=== PATIENT | female | born 1970 | race Caucasian/White ===

== ENCOUNTER → 2019-07-05 | Outpatient (CLI) | payer BC ==
[~2019-07-05] MED LIST: BIOT25005 PO; BUPR100T8 PO; CALC-534 PO; CHOL200024 PO; CYAN2000 PO; GABA600T7 PO; HYDR-36 PO; HYDR-826 PO; IBUP-1222 PO; LIDO700A42 TD; MORP-29 PO; MULT-658 PO; OMEG1CAP34 PO; OMEP-110 PO; PREG100C PO; TIZA4CAP PO; TURM1CAP PO; VENL225T PO; ZOLP12.54 PO
[2019-07-05 14:50] LABS: BASOPHILS # (AUTO) 0.06 x10^3/uL (0-0.1); BASOPHILS % (AUTO) 1 % (0-1); EOSINOPHILS # (AUTO) 0.24 x10^3/uL (0-0.4); EOSINOPHILS % (AUTO) 4 % (1-7); LYMPHOCYTES % (AUTO) 39 % (22-44); MD NO; MEAN CORPUSCULAR HEMOGLOBIN 30.9 pg (27.0-34.8); MEAN CORPUSCULAR HGB CONC 32.7 g/dL (32.4-35.8); MEAN CORPUSCULAR VOLUME 94.3 fL (80-100); MEAN PLATELET VOLUME 7.5 fL (7.4-10.4); MONOCYTES # (AUTO) 0.54 x10^3/uL (0.2-0.8); MONOCYTES % (AUTO) 10 % (2-9); NEUTROPHILS # (AUTO) 2.55 x10^3/uL (1.8-6.8); NEUTROPHILS % (AUTO) 46 % (42-75); PLATELET COUNT 421 x10^3/uL (130-400); RED BLOOD COUNT 4.09 x10^6/uL (3.82-5.3); RED CELL DISTRIBUTION WIDTH 12.9 % (9.6-15.2)
[2019-07-05 14:51] LABS: MICROSCOPIC NOT IND
[2019-07-05 15:01] LABS: INTERNATIONAL NORMALIZED RATIO 0.98 (0.93-1.1); PROTHROMBIN TIME 10.4 Seconds (9.6-11.5)
[2019-07-05 15:02] LABS: ANION GAP 9 mmol/L (5-15); CALCIUM 8.7 mg/dL (8.5-10.1); CHLORIDE 104 mmol/L (98-107)
[2019-07-05 15:10] LABS: CULTURE INDICATED? NO
== END | disposition home or self-care (01) ==
LOC: STAR 12:46
PROVIDERS: ATTEND Neurological Surgery
DX: Z01.818 Encounter for other preprocedural examination (principal); M48.061 Spinal stenosis, lumbar region without neurogenic claudication; M51.36 Other intervertebral disc degeneration, lumbar region; R79.1 Abnormal coagulation profile; R82.90 Unspecified abnormal findings in urine; R94.31 Abnormal electrocardiogram [ECG] [EKG]; Z01.810 Encounter for preprocedural cardiovascular examination; Z01.811 Encounter for preprocedural respiratory examination; Z01.812 Encounter for preprocedural laboratory examination
CPT/HCPCS: 36415; 71046; 72110; 80048; 81003; 85025; 85610; 85730; 93005

== ENCOUNTER 2019-07-12 05:32 | Inpatient (IN) | payer BC ==
[~2019-07-12] VITALS: Ht 175.3 cm; Wt 84.0 kg
[2019-07-12] MEDS ORDERED: BUPIVACAINE/PF-EPI 0.5% 1:200K ONE (05:56)
[2019-07-12] MEDS ORDERED: BACITRACIN 50,000 UNIT ONE (05:56)
[2019-07-12] MEDS ORDERED: LACTATED RINGERS 1,000 ML IV SCH (06:22)
[2019-07-12] MEDS ORDERED: DIAZEPAM 5 MG TABLET PO ONE (06:30)
[2019-07-12] MEDS ORDERED: ACETAMINOPHEN 500 MG TABLET PO ONE (06:30)
[2019-07-12] MEDS ORDERED: SCOPOLAMINE 1MG PATCH TD ONE (06:30)
[2019-07-12] MEDS ORDERED: LABETALOL 5MG/ML, 20ML ONE (07:03)
[2019-07-12] MEDS ORDERED: FENTANYL PF 250 MCG/5ML ONE (07:06)
[2019-07-12] MEDS ORDERED: FENTANYL PF 100 MCG/2ML ONE ×3 (07:06→09:06)
[2019-07-12] MEDS ORDERED: MIDAZOLAM 1 MG/ML, 2ML ONE ×2 (07:07→07:38)
[2019-07-12] MEDS ORDERED: PROPOFOL 100 ML ONE (07:09)
[2019-07-12] MEDS ORDERED: HEPARIN 1,000 UNITS/ML, 30ML IVPB ONE (07:44)
[2019-07-12] MEDS ORDERED: ONDANSETRON 2MG/ML, 2ML IV PRN (08:00)
[2019-07-12] MEDS ORDERED: PROMETHAZINE 25 MG/ML, 1ML IV PRN (08:00)
[2019-07-12] MEDS ORDERED: PROMETHAZINE 12.5 MG SUPP PR PRN (08:00)
[2019-07-12] MEDS ORDERED: MIDAZOLAM 1 MG/ML, 2ML IV PRN (08:00)
[2019-07-12] MEDS ORDERED: ONDANSETRON ODT 8 MG PO PRN (08:00)
[2019-07-12] MEDS ORDERED: LABETALOL 5MG/ML, 20ML IV PRN ×2 (08:00→12:30)
[2019-07-12] MEDS ORDERED: hydrALAzine 20 MG/ML, 1ML IV PRN (08:00)
[2019-07-12] MEDS ORDERED: PROMETHAZINE 25 MG SUPP PR PRN (08:00)
[2019-07-12] MEDS ORDERED: PROPOFOL 10 MG/ML, 20ML ONE (08:28)
[2019-07-12] MEDS ORDERED: DEXAMETHASONE 4 MG/ML, 1ML ONE (08:28)
[2019-07-12] MEDS ORDERED: ONDANSETRON 2MG/ML, 2ML ONE (08:28)
[2019-07-12] MEDS ORDERED: SUCCINYLCHOLINE 20 MG/ML, 10ML ONE (08:28)
[2019-07-12] MEDS ORDERED: ROCURONIUM 10MG/ML,5ML ONE (08:28)
[2019-07-12] MEDS ORDERED: NEOSTIGMINE 1 MG/ML, 10ML ONE (08:28)
[2019-07-12] MEDS ORDERED: GLYCOPYRROLATE 0.2MG/1ML, 5ML ONE (08:28)
[2019-07-12] MEDS ORDERED: CEFAZOLIN 1,000 MG ONE (08:28)
[2019-07-12] MEDS ORDERED: SUGAMMADEX 200 MG/2 ML IVPush ONE (08:46)
[2019-07-12] MEDS ORDERED: OXYcodone 5 MG/5 ML ORAL.SOL UDC ONE ×2 (09:06→10:42)
[2019-07-12] MEDS: FENTANYL PF 100 MCG/2ML IV PRN ×2 (09:10→09:20)
[2019-07-12] MEDS ORDERED: HYDROmorphone 1 MG/ML, 1ML INJ ONE (09:10)
[2019-07-12] MEDS ORDERED: METHOCARBAMOL 1,000 MG in DEXTROSE 5% 100 ML IV ONE (09:12)
[2019-07-12] MEDS: OXYcodone 5 MG/5 ML ORAL.SOL UDC PO PRN ×2 (09:25→10:40)
[2019-07-12] MEDS: HYDROmorphone 1 MG/ML, 1ML INJ IVPush PRN ×2 (09:25→09:35)
[2019-07-12] MEDS ORDERED: LORazepam 2 MG/ML, 1ML ONE (09:30)
[2019-07-12] MEDS: LORazepam 2 MG/ML, 1ML IVPush PRN ×2 (09:35→09:51)
[2019-07-12] MEDS ORDERED: MEPERIDINE/PF 25MG/ML,1ML ONE (10:10)
[2019-07-12] MEDS ORDERED: MEPERIDINE/PF 25MG/ML,1ML IVPush PRN (10:30)
[2019-07-12 12:10] VITALS: BP 149/92
[2019-07-12] MEDS ORDERED: DIPHENHYDRAMINE 50 MG/ML, 1ML IVPush PRN (12:30)
[2019-07-12] MEDS ORDERED: DIPHENHYDRAMINE 50 MG/ML, 1ML IM PRN (12:30)
[2019-07-12] MEDS ORDERED: BISACODYL 10 MG SUPP PR PRN (12:30)
[2019-07-12] MEDS ORDERED: DIPHENHYDRAMINE 25 MG CAPSULE PO PRN (12:30)
[2019-07-12] MEDS: D5%-0.9% NACL+KCL 20MEQ 1,000 ML IV SCH ×2 (13:16→22:30)
[2019-07-12] MEDS: GABAPENTIN 300 MG CAPSULE PO SCH ×3 (15:12→20:18)
[2019-07-12] MEDS: HYDROcodone/APAP 10/325 MG TABLET PO PRN ×2 (15:12→20:08)
[2019-07-12] MEDS: PREGABALIN 100 MG CAPSULE PO SCH ×2 (15:12→20:18)
[2019-07-12] MEDS: CEFAZOLIN PMX 1GM/50ML 50 ML IVPB SCH (17:11)
[2019-07-12] MEDS: TIZANIDINE 4MG TABLET PO PRN (17:11)
[2019-07-12 18:56] VITALS: BP 164/101
[2019-07-12] MEDS: morphine SULFATE 10 MG/ML, 1ML IV PRN (19:06)
[2019-07-12 20:04] VITALS: BP 147/90
[2019-07-12] MEDS: BUPROPION SR 100 MG TABLET PO SCH (20:18)
[2019-07-12] MEDS: METHOCARBAMOL 750 MG TABLET PO PRN (20:28)
[2019-07-12 22:33] VITALS: BP 107/71
[2019-07-13 00:26] VITALS: BP 101/66
[2019-07-13] MEDS: TIZANIDINE 4MG TABLET PO PRN ×3 (00:29→23:05)
[2019-07-13] MEDS: HYDROcodone/APAP 10/325 MG TABLET PO PRN ×4 (00:29→23:05)
[2019-07-13] MEDS: CEFAZOLIN PMX 1GM/50ML 50 ML IVPB SCH ×2 (00:36→20:56)
[2019-07-13] MEDS: METHOCARBAMOL 750 MG TABLET PO PRN ×2 (04:39→20:56)
[2019-07-13 04:40] VITALS: BP 118/78
[2019-07-13 06:04] LABS: BASOPHILS # (AUTO) 0.03 x10^3/uL (0-0.1); BASOPHILS % (AUTO) 0 % (0-1); EOSINOPHILS # (AUTO) 0.06 x10^3/uL (0-0.4); EOSINOPHILS % (AUTO) 1 % (1-7); LYMPHOCYTES % (AUTO) 28 % (22-44); MD NO; MEAN CORPUSCULAR HEMOGLOBIN 31.3 pg (27.0-34.8); MEAN CORPUSCULAR HGB CONC 33.3 g/dL (32.4-35.8); MEAN CORPUSCULAR VOLUME 94.1 fL (80-100); MEAN PLATELET VOLUME 7.8 fL (7.4-10.4); MONOCYTES # (AUTO) 1.19 x10^3/uL (0.2-0.8); MONOCYTES % (AUTO) 12 % (2-9); NEUTROPHILS # (AUTO) 5.84 x10^3/uL (1.8-6.8); NEUTROPHILS % (AUTO) 59 % (42-75); PLATELET COUNT 349 x10^3/uL (130-400); RED BLOOD COUNT 3.52 x10^6/uL (3.82-5.3); RED CELL DISTRIBUTION WIDTH 12.7 % (9.6-15.2)
[2019-07-13] MEDS: OMEPRAZOLE 20 MG CAPSULE.DR PO SCH (06:07)
[2019-07-13] MEDS: GABAPENTIN 300 MG CAPSULE PO SCH ×5 (06:07→20:56)
[2019-07-13 06:16] LABS: ANION GAP 6 mmol/L (5-15); CALCIUM 8.4 mg/dL (8.5-10.1); CHLORIDE 111 mmol/L (98-107)
[2019-07-13 06:18] LABS: CREATININE 0.69 mg/dL (0.55-1.02)
[2019-07-13] MEDS ORDERED: BACITRACIN 50,000 UNIT ONE (06:18)
[2019-07-13] MEDS ORDERED: BUPIVACAINE/PF 0.5% ONE (06:18)
[2019-07-13] MEDS ORDERED: EPINEPHRINE 1 MG/ML, 1ML ONE (06:18)
[2019-07-13] MEDS ORDERED: BUPIVACAINE 0.25% ONE (06:18)
[2019-07-13] MEDS ORDERED: VANCOMYCIN 1,000 MG ONE (06:18)
[2019-07-13 07:56] VITALS: BP 116/76
[2019-07-13] MEDS: D5%-0.9% NACL+KCL 20MEQ 1,000 ML IV SCH ×2 (08:27→18:19)
[2019-07-13] MEDS: SENNA/DOCUSATE TABLET PO SCH (08:27)
[2019-07-13] MEDS: VENLAFAXINE 75 MG CAP ER PO SCH (08:28)
[2019-07-13] MEDS: BUPROPION SR 100 MG TABLET PO SCH ×2 (08:29→20:56)
[2019-07-13] MEDS: PREGABALIN 100 MG CAPSULE PO SCH ×3 (08:29→20:56)
[2019-07-13] MEDS ORDERED: PROPOFOL 100 ML ONE (10:12)
[2019-07-13] MEDS ORDERED: FENTANYL PF 250 MCG/5ML ONE ×3 (10:12→15:28)
[2019-07-13] MEDS ORDERED: MIDAZOLAM 1 MG/ML, 2ML ONE (10:12)
[2019-07-13] MEDS: SCOPOLAMINE 1MG PATCH TD SCH (11:50)
[2019-07-13] MEDS ORDERED: GABAPENTIN 300 MG CAPSULE PO ONE (12:00)
[2019-07-13] MEDS ORDERED: ACETAMINOPHEN 500 MG TABLET PO ONE (12:00)
[2019-07-13] MEDS ORDERED: MORPHINE SULFATE 4 MG/ML, 1ML IVPush PRN (12:30)
[2019-07-13] MEDS ORDERED: hydrALAzine 20 MG/ML, 1ML IV PRN (12:30)
[2019-07-13] MEDS ORDERED: MEPERIDINE/PF 25MG/ML,1ML IVPush PRN (12:30)
[2019-07-13] MEDS ORDERED: PROMETHAZINE 25 MG/ML, 1ML IV PRN (12:30)
[2019-07-13] MEDS ORDERED: OXYcodone 5 MG/5 ML ORAL.SOL UDC PO PRN (12:30)
[2019-07-13] MEDS ORDERED: LABETALOL 5MG/ML, 20ML IV PRN (12:30)
[2019-07-13] MEDS ORDERED: HALOPERIDOL 5 MG/ML IV PRN (12:30)
[2019-07-13] MEDS ORDERED: BUPIVACAINE LIPOSOME/PF 10ML INFIL ONE (13:25)
[2019-07-13] MEDS ORDERED: VANCOMYCIN 1,000 MG IM ONE (13:34)
[2019-07-13] MEDS ORDERED: PROPOFOL 50 ML ONE (14:51)
[2019-07-13] MEDS ORDERED: FENTANYL PF 100 MCG/2ML ONE (16:08)
[2019-07-13] MEDS ORDERED: HYDROmorphone 2 MG/ML, 1ML ONE ×2 (16:08→17:37)
[2019-07-13] MEDS ORDERED: DIAZEPAM 5 MG/ML, 2ML ONE (16:09)
[2019-07-13] MEDS ORDERED: OXYcodone 5 MG/5 ML ORAL.SOL UDC ONE (16:09)
[2019-07-13] MEDS: FENTANYL PF 100 MCG/2ML IV PRN ×2 (16:22→16:57)
[2019-07-13] MEDS: DIAZEPAM 5 MG/ML, 2ML IVPush PRN ×2 (16:26→17:05)
[2019-07-13] MEDS ORDERED: PHARMACY MAY ADJ FOR RENAL FX MC PRN (16:30)
[2019-07-13] MEDS ORDERED: ONDANSETRON 2MG/ML, 2ML IVPush PRN (16:30)
[2019-07-13] MEDS ORDERED: CYCLOBENZAPRINE 10 MG TABLET PO PRN (16:30)
[2019-07-13] MEDS ORDERED: HYDROcodone/APAP 10/325 MG TABLET PO PRN (16:30)
[2019-07-13] MEDS ORDERED: METHOCARBAMOL 750 MG TABLET PO PRN (16:30)
[2019-07-13] MEDS ORDERED: MAGNESIUM HYDROXIDE 8%, 30ML UDC PO PRN (16:30)
[2019-07-13] MEDS ORDERED: SENNA/DOCUSATE TABLET PO PRN (16:30)
[2019-07-13] MEDS ORDERED: OXYcodone/APAP 5/325MG TABLET PO PRN (16:30)
[2019-07-13] MEDS ORDERED: PROMETHAZINE 25 MG/ML, 1ML IM PRN (16:30)
[2019-07-13] MEDS: HYDROmorphone 2 MG/ML, 1ML IVPush PRN ×6 (16:55→17:45)
[2019-07-13 18:40] VITALS: BP 138/93
[2019-07-13] MEDS: morphine SULFATE 10 MG/ML, 1ML IVPush PRN ×2 (20:02→20:55)
[2019-07-13] MEDS: KETOROLAC 30 MG/1 ML IVPush SCH (20:55)
[2019-07-13] MEDS: NS + 20MEQ KCL 1,000 ML IV SCH (20:56)
[2019-07-13] MEDS: SODIUM CHLORIDE FLUSH 10ML SYR IVF SCH (20:56)
[2019-07-13 23:14] VITALS: BP 151/97
[2019-07-14 00:29] VITALS: BP 152/94
[2019-07-14] MEDS: morphine SULFATE 10 MG/ML, 1ML IVPush PRN ×2 (00:40→02:46)
[2019-07-14] MEDS: KETOROLAC 30 MG/1 ML IVPush SCH ×3 (03:22→14:45)
[2019-07-14 03:30] VITALS: BP 133/83
[2019-07-14] MEDS: D5%-0.9% NACL+KCL 20MEQ 1,000 ML IV SCH ×2 (04:30→11:46)
[2019-07-14] MEDS: OMEPRAZOLE 20 MG CAPSULE.DR PO SCH (05:09)
[2019-07-14] MEDS: CEFAZOLIN PMX 1GM/50ML 50 ML IVPB SCH (05:10)
[2019-07-14] MEDS: GABAPENTIN 300 MG CAPSULE PO SCH ×5 (05:10→22:08)
[2019-07-14 06:19] LABS: BASOPHILS # (AUTO) 0.03 x10^3/uL (0-0.1); BASOPHILS % (AUTO) 0 % (0-1); EOSINOPHILS # (AUTO) 0.01 x10^3/uL (0-0.4); EOSINOPHILS % (AUTO) 0 % (1-7); LYMPHOCYTES # (AUTO) 1.86 x10^3/uL (1-3.4); LYMPHOCYTES % (AUTO) 19 % (22-44); MD NO; MEAN CORPUSCULAR HEMOGLOBIN 31.5 pg (27.0-34.8); MEAN CORPUSCULAR HGB CONC 33.3 g/dL (32.4-35.8); MEAN CORPUSCULAR VOLUME 94.5 fL (80-100); MONOCYTES # (AUTO) 1.23 x10^3/uL (0.2-0.8); MONOCYTES % (AUTO) 12 % (2-9); NEUTROPHILS # (AUTO) 6.84 x10^3/uL (1.8-6.8); NEUTROPHILS % (AUTO) 69 % (42-75); PLATELET COUNT 310 x10^3/uL (130-400); RED BLOOD COUNT 3.24 x10^6/uL (3.82-5.3)
[2019-07-14 06:27] LABS: ANION GAP 4 mmol/L (5-15); CALCIUM 8.2 mg/dL (8.5-10.1); CHLORIDE 111 mmol/L (98-107)
[2019-07-14 08:14] VITALS: BP 113/71
[2019-07-14] MEDS: METHOCARBAMOL 750 MG TABLET PO PRN ×2 (08:32→16:36)
[2019-07-14] MEDS: BUPROPION SR 100 MG TABLET PO SCH ×2 (08:32→22:07)
[2019-07-14] MEDS: SENNA/DOCUSATE TABLET PO SCH (08:32)
[2019-07-14] MEDS: SODIUM CHLORIDE FLUSH 10ML SYR IVF SCH ×2 (08:32→21:00)
[2019-07-14] MEDS: HYDROcodone/APAP 10/325 MG TABLET PO PRN (08:33)
[2019-07-14] MEDS: PREGABALIN 100 MG CAPSULE PO SCH ×3 (08:33→22:08)
[2019-07-14] MEDS: VENLAFAXINE 75 MG CAP ER PO SCH (08:35)
[2019-07-14 08:38] VITALS: BP 121/75
[2019-07-14] MEDS: HYDROcodone/APAP 5/325 TABLET PO PRN ×3 (13:07→23:17)
[2019-07-14] MEDS: NS + 20MEQ KCL 1,000 ML IV SCH (13:08)
[2019-07-14] MEDS: morphine SULFATE 10 MG/ML, 1ML IV PRN (14:44)
[2019-07-14 14:56] VITALS: BP 134/64
[2019-07-14 19:26] VITALS: BP 121/81
[2019-07-14] MEDS: TIZANIDINE 4MG TABLET PO PRN (23:18)
[2019-07-15] MEDS: morphine SULFATE 10 MG/ML, 1ML IV PRN ×2 (01:13→18:09)
[2019-07-15 01:18] VITALS: BP 174/93
[2019-07-15] MEDS: METHOCARBAMOL 750 MG TABLET PO PRN ×2 (01:22→14:18)
[2019-07-15] MEDS: NS + 20MEQ KCL 1,000 ML IV SCH ×2 (02:20→16:12)
[2019-07-15] MEDS: HYDROcodone/APAP 5/325 TABLET PO PRN (03:27)
[2019-07-15 05:14] LABS: BASOPHILS # (AUTO) 0.05 x10^3/uL (0-0.1); BASOPHILS % (AUTO) 1 % (0-1); EOSINOPHILS # (AUTO) 0.23 x10^3/uL (0-0.4); EOSINOPHILS % (AUTO) 2 % (1-7); LYMPHOCYTES # (AUTO) 2.13 x10^3/uL (1-3.4); LYMPHOCYTES % (AUTO) 21 % (22-44); MD NO; MEAN CORPUSCULAR HEMOGLOBIN 31.4 pg (27.0-34.8); MEAN CORPUSCULAR HGB CONC 33.3 g/dL (32.4-35.8); MEAN CORPUSCULAR VOLUME 94.3 fL (80-100); MEAN PLATELET VOLUME 7.8 fL (7.4-10.4); MONOCYTES # (AUTO) 0.91 x10^3/uL (0.2-0.8); MONOCYTES % (AUTO) 9 % (2-9); NEUTROPHILS # (AUTO) 6.94 x10^3/uL (1.8-6.8); NEUTROPHILS % (AUTO) 68 % (42-75); PLATELET COUNT 329 x10^3/uL (130-400); RED BLOOD COUNT 3.35 x10^6/uL (3.82-5.3)
[2019-07-15 05:28] LABS: ANION GAP 4 mmol/L (5-15); CALCIUM 8.4 mg/dL (8.5-10.1); CHLORIDE 109 mmol/L (98-107)
[2019-07-15 05:30] LABS: CREATININE 0.62 mg/dL (0.55-1.02)
[2019-07-15] MEDS: OMEPRAZOLE 20 MG CAPSULE.DR PO SCH (06:13)
[2019-07-15] MEDS: GABAPENTIN 300 MG CAPSULE PO SCH ×5 (06:13→20:03)
[2019-07-15 07:35] VITALS: BP 169/93
[2019-07-15] MEDS: BUPROPION SR 100 MG TABLET PO SCH ×2 (08:04→20:03)
[2019-07-15] MEDS: SENNA/DOCUSATE TABLET PO SCH (08:04)
[2019-07-15] MEDS: PREGABALIN 100 MG CAPSULE PO SCH ×3 (08:04→20:03)
[2019-07-15] MEDS: VENLAFAXINE 75 MG CAP ER PO SCH (08:05)
[2019-07-15] MEDS: HYDROcodone/APAP 10/325 MG TABLET PO PRN ×3 (08:05→22:37)
[2019-07-15] MEDS: SODIUM CHLORIDE FLUSH 10ML SYR IVF SCH ×2 (08:05→20:03)
[2019-07-15] MEDS: ONDANSETRON 2MG/ML, 2ML IV PRN (12:02)
[2019-07-15] MEDS: PROPRANOLOL 20 MG TABLET PO SCH (12:02)
[2019-07-15 12:05] VITALS: BP 163/112
[2019-07-15 13:36] VITALS: BP 150/93
[2019-07-15] MEDS: PROMETHAZINE 25 MG/ML, 1ML IM PRN (15:51)
[2019-07-15 19:58] VITALS: BP 161/106
[2019-07-16] MEDS: HYDROcodone/APAP 10/325 MG TABLET PO PRN ×4 (02:22→16:57)
[2019-07-16 02:27] VITALS: BP 134/92
[2019-07-16] MEDS: NS + 20MEQ KCL 1,000 ML IV SCH ×2 (04:12→18:20)
[2019-07-16] MEDS: GABAPENTIN 300 MG CAPSULE PO SCH ×5 (06:15→20:45)
[2019-07-16] MEDS: PROPRANOLOL 20 MG TABLET PO SCH (06:15)
[2019-07-16] MEDS: OMEPRAZOLE 20 MG CAPSULE.DR PO SCH (06:16)
[2019-07-16 07:20] VITALS: BP 136/94
[2019-07-16] MEDS: VENLAFAXINE 75 MG CAP ER PO SCH (08:38)
[2019-07-16] MEDS: ONDANSETRON 2MG/ML, 2ML IV PRN (08:38)
[2019-07-16] MEDS: PREGABALIN 100 MG CAPSULE PO SCH ×3 (08:39→20:45)
[2019-07-16] MEDS: BUPROPION SR 100 MG TABLET PO SCH ×2 (08:39→20:45)
[2019-07-16] MEDS: SODIUM CHLORIDE FLUSH 10ML SYR IVF SCH ×2 (08:39→20:46)
[2019-07-16] MEDS: SENNA/DOCUSATE TABLET PO SCH (08:39)
[2019-07-16] MEDS: SCOPOLAMINE 1MG PATCH TD SCH (12:00)
[2019-07-16] MEDS: METHOCARBAMOL 750 MG TABLET PO PRN (12:08)
[2019-07-16] MEDS: PROMETHAZINE 25 MG/ML, 1ML IM PRN (13:45)
[2019-07-16] MEDS: MAGNESIUM HYDROXIDE 8%, 30ML UDC PO PRN (13:55)
[2019-07-16 14:00] VITALS: BP 132/84
[2019-07-16] MEDS: TIZANIDINE 4MG TABLET PO PRN (16:57)
[2019-07-16 19:34] VITALS: BP 114/78
[2019-07-17] MEDS: METHOCARBAMOL 750 MG TABLET PO PRN (00:01)
[2019-07-17] MEDS: HYDROcodone/APAP 10/325 MG TABLET PO PRN ×4 (00:01→19:45)
[2019-07-17 01:29] VITALS: BP 151/92
[2019-07-17] MEDS: PROPRANOLOL 20 MG TABLET PO SCH (05:42)
[2019-07-17] MEDS: OMEPRAZOLE 20 MG CAPSULE.DR PO SCH (05:42)
[2019-07-17] MEDS: GABAPENTIN 300 MG CAPSULE PO SCH ×5 (05:42→20:54)
[2019-07-17 07:05] VITALS: BP 162/103
[2019-07-17] MEDS ORDERED: METHOCARBAMOL 750 MG TABLET PO PRN (08:00)
[2019-07-17] MEDS ORDERED: METHOCARBAMOL 1000MG/10 ML IV SCH (08:00)
[2019-07-17] MEDS: SENNA/DOCUSATE TABLET PO SCH (08:05)
[2019-07-17] MEDS: PREGABALIN 100 MG CAPSULE PO SCH ×3 (08:06→20:53)
[2019-07-17] MEDS: VENLAFAXINE 75 MG CAP ER PO SCH (08:06)
[2019-07-17] MEDS: BUPROPION SR 100 MG TABLET PO SCH ×2 (08:06→20:53)
[2019-07-17] MEDS: DEXAMETHASONE 4 MG/ML, 1ML IV SCH ×3 (08:09→20:54)
[2019-07-17] MEDS: SODIUM CHLORIDE FLUSH 10ML SYR IVF SCH ×2 (08:14→20:48)
[2019-07-17] MEDS ORDERED: KETOROLAC 30 MG/1 ML IVPush PRN (08:30)
[2019-07-17] MEDS ORDERED: FAMOTIDINE 20 MG/2 ML IVPush SCH ×2 (09:00→21:00)
[2019-07-17] MEDS: METHOCARBAMOL 1,000 MG in DEXTROSE 5% 100 ML IV SCH ×2 (10:25→17:56)
[2019-07-17 12:21] VITALS: BP 163/105
[2019-07-17] MEDS ORDERED: ENALAPRILAT 1.25 MG/ML, 2ML IV PRN (13:00)
[2019-07-17] MEDS: morphine SULFATE 10 MG/ML, 1ML IVPush PRN (13:32)
[2019-07-17 14:00] VITALS: BP 129/91
[2019-07-17] MEDS ORDERED: BUTALB/APAP/CAFFEINE 50MG/325MG/40MG PO PRN (15:30)
[2019-07-17 16:55] LABS: ANION GAP 6 mmol/L (5-15); CALCIUM 8.7 mg/dL (8.5-10.1); CHLORIDE 106 mmol/L (98-107)
[2019-07-17 16:56] LABS: BASOPHILS % (AUTO) 0 % (0-1); EOSINOPHILS % (AUTO) 0 % (1-7); LYMPHOCYTES # (AUTO) 0.64 x10^3/uL (1-3.4); LYMPHOCYTES % (AUTO) 9 % (22-44); MD NO; MEAN CORPUSCULAR HEMOGLOBIN 31.1 pg (27.0-34.8); MEAN CORPUSCULAR HGB CONC 33.4 g/dL (32.4-35.8); MEAN CORPUSCULAR VOLUME 93.1 fL (80-100); MONOCYTES % (AUTO) 4 % (2-9); NEUTROPHILS # (AUTO) 6.54 x10^3/uL (1.8-6.8); NEUTROPHILS % (AUTO) 87 % (42-75); PLATELET COUNT 449 x10^3/uL (130-400); RED BLOOD COUNT 3.89 x10^6/uL (3.82-5.3)
[2019-07-17] MEDS: NS + 20MEQ KCL 1,000 ML IV SCH (17:00)
[2019-07-17 20:44] VITALS: BP 153/101
[2019-07-17] MEDS: FAMOTIDINE 20 MG/2 ML IV SCH (20:54)
[2019-07-18] MEDS: HYDROcodone/APAP 10/325 MG TABLET PO PRN ×3 (01:03→11:07)
[2019-07-18 01:26] VITALS: BP 160/94
[2019-07-18] MEDS: METHOCARBAMOL 1,000 MG in DEXTROSE 5% 100 ML IV SCH (02:02)
[2019-07-18] MEDS: DEXAMETHASONE 4 MG/ML, 1ML IV SCH (02:48)
[2019-07-18] MEDS: PROPRANOLOL 20 MG TABLET PO SCH (05:40)
[2019-07-18] MEDS: OMEPRAZOLE 20 MG CAPSULE.DR PO SCH (05:40)
[2019-07-18] MEDS: GABAPENTIN 300 MG CAPSULE PO SCH ×2 (05:40→09:28)
[2019-07-18 07:26] VITALS: BP 157/101
[2019-07-18] MEDS: NS + 20MEQ KCL 1,000 ML IV SCH (07:30)
[2019-07-18] MEDS: FAMOTIDINE 20 MG/2 ML IV SCH (08:05)
[2019-07-18] MEDS: PREGABALIN 100 MG CAPSULE PO SCH (08:05)
[2019-07-18] MEDS: VENLAFAXINE 75 MG CAP ER PO SCH (08:05)
[2019-07-18] MEDS: BUPROPION SR 100 MG TABLET PO SCH (08:05)
[2019-07-18] MEDS: SENNA/DOCUSATE TABLET PO SCH (08:05)
[2019-07-18] MEDS: SODIUM CHLORIDE FLUSH 10ML SYR IVF SCH (08:06)
[2019-07-18] MEDS: MAGNESIUM HYDROXIDE 8%, 30ML UDC PO PRN (08:06)
[2019-07-18] MEDS ORDERED: DOXY100T PO (08:43)
[2019-07-18] MEDS ORDERED: BUTA1CAP30 PO (08:59)
[2019-07-18] MEDS ORDERED: METH4TAB2 PO (09:00)
[2019-07-18] MEDS: TIZANIDINE 4MG TABLET PO PRN (09:28)
[2019-07-18] MEDS ORDERED: POLYETHYLENE GLYCOL 17 GM PACKET PO ONE (10:30)
[2019-07-18 13:00] VITALS: BP 134/91
== END 2019-07-18 14:00 | disposition home or self-care (01) | DRG 453 ==
LOC: ORIP 05:32 → 4NE 11:55 → DCLOUNGE 07-18 13:34
PROVIDERS: ADMIT Neurological Surgery; ATTEND Neurological Surgery
PROC: 0SB40ZZ Excision of Lumbosacral Disc, Open Approach (ICD-10-PCS; 2019-07-12)
PROC: 4A11X4G Monitoring of Peripheral Nervous Electrical Activity, Intraoperative, External Approach (ICD-10-PCS; 2019-07-12)
PROC: 0SG30A0 Fusion of Lumbosacral Joint with Interbody Fusion Device, Anterior Approach, Anterior Column, Open Approach (ICD-10-PCS; principal; 2019-07-12 07:00)
PROC: 0SG3071 Fusion of Lumbosacral Joint with Autologous Tissue Substitute, Posterior Approach, Posterior Column, Open Approach (ICD-10-PCS; 2019-07-13)
PROC: 4A11X4G Monitoring of Peripheral Nervous Electrical Activity, Intraoperative, External Approach (ICD-10-PCS; 2019-07-13)
PROC: 8E0W0CZ Robotic Assisted Procedure of Trunk Region, Open Approach (ICD-10-PCS; 2019-07-13)
DX: M48.07 Spinal stenosis, lumbosacral region (principal); I60.9 Nontraumatic subarachnoid hemorrhage, unspecified; F11.23 Opioid dependence with withdrawal; F33.9 Major depressive disorder, recurrent, unspecified; M48.57XA Collapsed vertebra, not elsewhere classified, lumbosacral region, initial encounter for fracture; M51.16 Intervertebral disc disorders with radiculopathy, lumbar region; M48.061 Spinal stenosis, lumbar region without neurogenic claudication; M51.17 Intervertebral disc disorders with radiculopathy, lumbosacral region; Z82.49 Family history of ischemic heart disease and other diseases of the circulatory system; Z88.6 Allergy status to analgesic agent; F41.9 Anxiety disorder, unspecified; I10 Essential (primary) hypertension; G89.29 Other chronic pain; K59.00 Constipation, unspecified; M47.816 Spondylosis without myelopathy or radiculopathy, lumbar region; M51.36 Other intervertebral disc degeneration, lumbar region
CPT/HCPCS: 36415; 72100; 74018; 76000; J3490; S0020; 72131; 72148; 80048; 85025; 86850; 86900; 95938; 95941; C1713; G0378; J0171; J0690; J1100; J1170; J1644; J1885; J2250; J2405; J2550; J2704; J2710; J3010; J3360; J3370; J3480; C1763; C1889; J0330; J1200; J2060; J2270; J2800; J7120; Q0163; Q0177